=== PATIENT | female | born 1990 | race Caucasian/White ===

== ENCOUNTER 2020-02-03 11:42 | Emergency (ER) | payer BC, SELFPAY ==
[2020-02-03 11:53] VITALS: BP 111/70; PULSE 87; RESP 18; TEMP 37.2; O2SAT 99
--- NOTE | 2020-02-03 12:50 | ED.GENADULT ---
HPI - General Adult General Chief complaint: Upper Respiratory Infection Stated complaint: sore throat/body aches/headache Time Seen by Provider: 02/03/20 12:42 Source: patient and RN notes reviewed Mode of arrival: ambulatory Limitations: no limitations History of Present Illness HPI narrative: 30-year-old female presents with complaints of sore throat, body aches, and intermittent headaches (not the worst of her life) for the past 7 days. Tylenol and Flonase, last yesterday with little relief. No high fevers, ranged from 99.1-99.8F tympanic. No drooling, neck or throat swelling. Pain is bilateral. Hurts to swallow. Exacerbation factors consist of eating and drinking. No rhinorrhea or nasal congestion. No voice change. No nausea, vomiting, or abdominal pain. Tolerating liquids well. Denies chills, dyspnea, difficulty swallowing, jaw pain, dental pain, facial pain, foreign body sensation, and rash. Remains active. Liliane denies being , LMP 01/25/2020. Denies weakness, fatigue, myalgia, or facial swelling. Denies chest pain or dyspnea. Denies cough, rhinorrhea, congestion. Denies recent traveling. 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 She says she has made contact with her employee that suggested that she gets tested for the FLU/Strep. She says she has been home for the past 7 days without much improvement and now wants further evaluation of symptoms before returning to work. Remains active. Some parts of this dictation were generated by voice recognition software and may contain typographical and/or grammatical inaccuracies. Related Data Home Medications Medication Instructions Recorded Confirmed No Home Medications 02/03/20 02/03/20 Allergies Allergy/AdvReac Type Severity Reaction Status Date / Time No Known Drug Allergies Allergy Unknown Other Verified 02/03/20 12:25 Review of Systems Review of Systems: Narrative: CONSTITUTIONAL: Denies fever, chills, sweats. EYES: Denies visual changes, redness, discharge. ENT: Denies rhinorrhea, otalgia, congestion. Complains of sore throat. CARDIOVASCULAR: Denies chest pain, palpitations, edema. RESPIRATORY: Denies dyspnea, wheezing, cough. GASTROINTESTINAL: Denies abdominal pain, nausea, vomiting, diarrhea. GENITOURINARY: Denies dysuria, hematuria, abnormal discharge. SKIN: Denies rash or itching. MUSCULOSKELETAL: Denies acute back pain, joint pain. Complains of myalgia. NEUROLOGIC: Denies numbness or focal weakness. Complains of intermittent CAPONE. PSYCHIATRIC: Denies anxiety or depression. All systems reviewed & are unremarkable except as noted in HPI and below. [facility] Past Medical History Medical History (Updated 02/04/20 @ 00:00 by Haven Kolb) Allergies Anxiety Deviated septum Genital warts Interstitial cystitis Surgical History Surgical History (Updated 02/03/20 @ 12:51 by NICOLETTE Bauer) History of nasal surgery Family History Family History (Updated 02/03/20 @ 12:52 by NICOLETTE Bauer) Father Alive and well Mother Asthma Sibling Asthma Social History Social History (Updated 02/03/20 @ 12:53 by NICOLETTE Bauer) Smoking packs per day: 0.5 Smoking cigarettes per day: 10.0 Years smoked: 17 Smoking pack-years: 8.50 Smoking status: Current every day smoker Tobacco type: cigarettes Second hand tobacco smoke exposure: No Alcohol intake: current Substance use: current Substance use type: marijuana Additional occupation/education comments: works on a surgical floor Gender identity (if verbalized by the patient): Female Comments At time of signature, agree with nurse past medical, surgical, social, and family history. There is no relevant family history pertinent to the presenting complaint. Exa
== END 2020-02-03 13:08 | disposition home or self-care (01) ==
PROVIDERS: Emergency Provider Nurse Practitioner Family
DX: Z20.828 Contact with and (suspected) exposure to other viral communicable diseases (principal); J02.9 Acute pharyngitis, unspecified; F17.210 Nicotine dependence, cigarettes, uncomplicated
CPT/HCPCS: 87081; 87804; 87880; 99213; G0463

== ENCOUNTER 2021-10-06 09:20 | Outpatient (CLI) | payer BC, SELFPAY ==
[2021-10-06 11:00] LABS: Influenza Control Valid (Valid)
[2021-10-07 19:52] LABS: SARS-CoV-2 RNA PCR Positive
== END 2021-10-06 09:21 | disposition home or self-care (01) ==
LOC: CHSLAB 09:23
PROVIDERS: PCP Family Medicine; Visit Provider Family Medicine
DX: J02.9 Acute pharyngitis, unspecified (principal); Z20.822 Contact with and (suspected) exposure to COVID-19
CPT/HCPCS: 87804; 87880; C9803; U0003; U0005

== ENCOUNTER 2022-04-03 10:44 | Outpatient (CLI) | payer BC, SELFPAY ==
--- NOTE | ~2022-04-03 | XR_ITS ---
EXAMINATION: XR thoracolumbar DATE: 04/03/2022 11:08 INDICATION: Dorsalgia TECHNIQUE: AP and lateral views of the lower mid thoracic to the mid lumbar spine were obtained. COMPARISON: None. FINDINGS: Alignment is normal. Vertebral body and disc heights are normal. Paravertebral soft tissues are unrem arkable. Visual is portions of the posterior lungs are clear. No pleural effusion. Heart size is norm al. IMPRESSION: 1. Negative thoracolumbar spine radiographs. Reviewed, dictated and finalized at location B.
== END 2022-04-03 10:45 | disposition home or self-care (01) ==
LOC: CHSIMG 10:47
PROVIDERS: PCP Family Medicine; Visit Provider Family Medicine
DX: M54.9 Dorsalgia, unspecified (principal)
CPT/HCPCS: 72080

== ENCOUNTER 2022-10-07 11:04 | Outpatient (CLI) | payer BC, SELFPAY ==
--- NOTE | ~2022-10-07 | XR_ITS ---
Left foot Technique: AP, oblique, and lateral views were obtained. Clinical History: Pain Findings: No acute fracture or dislocation is seen. Possible pes cavus deformity. Joint spaces are pr eserved without erosive or degenerative change. Soft tissues are unremarkable. Impression: No acute fracture or dislocation. Possible pes cavus. Reviewed, dictated and finalized at location . EAR EQUIPMENT OPERATOR Impression: No acute fracture or dislocation. Possible pes cavus.
== END 2022-10-07 11:05 | disposition home or self-care (01) ==
LOC: CHSIMG 11:07
PROVIDERS: PCP Family Medicine; Visit Provider Family Medicine
DX: M79.672 Pain in left foot (principal)
CPT/HCPCS: 73630

== ENCOUNTER 2023-04-06 12:17 | Outpatient (CLI) | payer BC, SELFPAY ==
[2023-04-06 12:58] LABS: Strep Group A RT-PCR NOT DETECTED (Negative)
[2023-04-06 13:04] LABS: Influenza A QL RT-PCR Negative (Negative); Influenza B QL RT-PCR Negative (Negative); SARS-CoV-2 RNA PCR Negative (Negative)
[2023-04-06 13:06] LABS: RSV RNA, RT-PCR Negative (Negative)
== END 2023-04-06 12:18 | disposition home or self-care (01) ==
LOC: CHSLAB 12:18
PROVIDERS: PCP Family Medicine; Visit Provider Nurse Practitioner Family
DX: J02.9 Acute pharyngitis, unspecified (principal); Z20.822 Contact with and (suspected) exposure to COVID-19
CPT/HCPCS: 87637; 87651

== ENCOUNTER 2023-06-01 09:19 | Outpatient (CLI) | payer BC, SELFPAY ==
[2023-06-01 09:30] LABS: Basophils Absolute Auto 0.03 K/mm3 (0.00-0.10); Basophils Percent Auto 0.5 % (0.0-1.0); Eosinophils Absolute Auto 0.19 K/mm3 (0.02-0.50); Eosinophils Percent Auto 3.2 % (1.0-6.0); Hematocrit 38.4 % (35.0-49.0); Hemoglobin 12.7 g/dL (12.0-15.0); Immature Granulocyte Absolute 0.02 K/mm3 (0.00-0.00); Immature Granulocyte Percent A 0.3 % (0.0-0.0); Lymphocytes Absolute Auto 1.99 K/mm3 (1.10-4.50); Lymphocytes Percent Auto 33.4 % (18.0-42.0); Mean Corpuscular HGB Conc 33.1 g/dL (32.0-36.0); Mean Corpuscular Hemoglobin 30.3 pg (27.0-31.0); Mean Corpuscular Volume 91.6 fL (78.0-102.0); Monocytes Absolute Auto 0.42 K/mm3 (0.10-0.90); Monocytes Percent Auto 7.1 % (2.0-11.0); Neutrophils Absolute Auto 3.3 K/mm3 (1.7-7.2); Neutrophils Percent Auto 55.5 % (50.0-70.0); Platelet Count Result 207 K/mm3 (150-420); Red Blood Count 4.19 M/mm3 (4.20-5.40); Red Cell Distribution Width 11.9 % (11.6-14.4)
[2023-06-01 10:04] LABS: Alanine Aminotransferase 19 U/L (14-59); Albumin Level 3.7 g/dL (3.4-5.0); Alkaline Phosphatase 52 U/L (46-116); Anion Gap 7 mmol/L (8-16); Aspartate Amino Transferase < 10 U/L (15-37); Bilirubin,Total 0.7 mg/dL (0.00-1.00); Blood Urea Nitrogen 10 mg/dL (7-18); Carbon Dioxide 29 mmol/L (21-32); Chloride 106 mmol/L (98-108); Estimated Glomerular Filt Rate > 60; Glucose 93 mg/dL (70-99); Magnesium 1.9 mg/dL (1.8-2.4); Osmolality Calculated 293 mOsm/kg (285-295); Potassium 4.3 mmol/L (3.5-5.1); Sodium 142 mmol/L (136-145); Total Protein 6.8 g/dL (6.4-8.2)
== END 2023-06-01 09:20 | disposition home or self-care (01) ==
LOC: CHSLAB 09:21
PROVIDERS: PCP Family Medicine; Visit Provider Family Medicine
DX: R00.2 Palpitations (principal)
CPT/HCPCS: 36415; 80053; 83735; 85025

== ENCOUNTER 2023-06-08 08:47 | Outpatient (CLI) | payer BC, SELFPAY ==
--- NOTE | 2023-06-14 07:47 | WPDHOLTEREM ---
Holter/Event Monitor Holter/Event Monitor Date of procedure: 06/08/23 Holter/Event Procedure: 48 Hr Holter Monitor Indications: Palpitations Conclusion: 1. 48 hour holter monitor on 06/08/23. 2. Predominant rhythm is sinus rhythm. HR range 41-171 bpm; average HR 83 bpm. HR at 41 bpm was at 02:23. HR at 171 bpm was at 07:56 with baseline artifact. 3. There are 54 premature supraventricular complexes and 11 supraventricular couplets. There is 1 episode of atrial tachycardia at 128 bpm lasting 57 beats at 18:38. 4. There are 3,102 premature ventricular complexes. No ventricular tachycardia. 5. No sinoatrial or atrioventricular blocks. No significant pauses greater than 2 seconds. 6. Patient reports 1 episode of symptom of anxiousness which demonstrate sinus rhythm at 94 bpm.
== END 2023-06-08 08:48 | disposition home or self-care (01) ==
LOC: CHSCARD 08:49
PROVIDERS: PCP Family Medicine; Visit Provider Family Medicine
DX: R00.2 Palpitations (principal)
CPT/HCPCS: 93225; 93226

== ENCOUNTER 2023-09-02 13:55 | Outpatient (CLI) | payer BC, SELFPAY ==
[2023-09-02 14:41] LABS: SARS-CoV-2 RNA PCR Negative (Negative)
[2023-09-02 14:56] LABS: Influenza A QL RT-PCR Negative (Negative); Influenza B QL RT-PCR Negative (Negative)
== END 2023-09-02 13:56 | disposition home or self-care (01) ==
LOC: CHSLAB 13:56
PROVIDERS: PCP Family Medicine; Visit Provider Family Medicine
DX: R05.9 Cough, unspecified (principal)
CPT/HCPCS: 87636

== ENCOUNTER 2023-12-02 12:11 | Outpatient (CLI) | payer BC, SELFPAY ==
[2023-12-02 13:36] LABS: Monoscreen Negative (Negative); Positive Monotest Control Positive (Positive)
[2023-12-02 13:37] LABS: Negative Monotest Control Negative (Negative)
== END 2023-12-02 12:12 | disposition home or self-care (01) ==
LOC: CHSLAB 12:13
PROVIDERS: PCP Nurse Practitioner Family; Visit Provider Nurse Practitioner Family
DX: J02.9 Acute pharyngitis, unspecified (principal)
CPT/HCPCS: 36415; 86308

== ENCOUNTER 2024-12-08 17:08 | Outpatient (CLI) | payer BC, SELFPAY ==
--- OUTSIDE RECORDS SUMMARY | 2024-12-08 17:10 | XMS_ITS | Clinical Summary ---
Author Organization [facility] Address [address] [place] [address] Care Team Providers Care Inventory Checker Name Role Phone Melissa Posadas MD Primary Care Provider + Source Comments [facility] Teamleader,non-owned Affiliates and Associated Physician Practices is amultiple site organization consisting of ambulatory clinics and hospital sitesin [place], [place], [place] and [place]. This disclosure is being madepursuant to the Care Everywhere program and may not contain all information available regarding this patient. Last updated 18.[facility] Teamleader Allergies No known active allergies Medications * Be aware that medications may not be up to date on this document. Alwaysverify current medications with the patient. Medication Sig Dispensed Refills Start Date End Date Status etonogestrel-ethinyl estradiol (NUVARING) 0.12-0.015 MG/24HR vaginal ring Insert 1 Device into the vagina as directed Remove ring after 3 weeks, followed by 1 week-rest, then insert new ring Active albuterol HFA (PROAIR HFA) 108 (90 BASE) MCG/ACT inhalerIndications:A cute bronchitis, unspecified organism Inhale 2 puffs by mouth every 4 hours as needed for Shortness of Breath, Wheezing or Cough 1 Inhaler 08/28/2017 Active methylPREDNISolone (MEDROL DOSEPAK) 4 MG tabletIndications:Ac jany bronchitis, unspecified organism Take by mouth as directed 1 Each 08/28/2017 Active Social History Tobacco Use Types Packs/Day Years Used Date Smoking Tobacco: Every Day Sex and Gender Information Value Date Recorded Sex Assigned at Not on file Gender Identity Not on file Sexual Orientation Not on file Last Filed Vital Signs Vital Sign Reading Time Taken Comments Blood Pressure 110/70 08/28/2017 10:27 AM SMASHER Pulse 101 08/28/2017 10:27 AM SMASHER Temperature 37.1 C (98.8 F) 08/28/2017 10:27 AM SMASHER Respiratory Rate - - Oxygen Saturation - - Inhaled Oxygen Concentration - - Weight 61.2 kg (135 lb) 08/28/2017 10:27 AM SMASHER Height 160 cm (5' 3 ) 08/28/2017 10:27 AM SMASHER Body Mass Index 23.91 08/28/2017 10:27 AM SMASHER Plan of Treatment Health Maintenance Due Date Last Done Comments PAP SMEAR 1988 HIV SCREENING 01/19/2003 HEPATITIS C SCREENING 01/15/2006 DTAP/TDAP/TD VACCINES (1 - Tdap) 01/19/2007 HEPATITIS B VACCINE (1 of 3 - 19+ 3-dose series) 01/19/2007 COVID-19 VACCINE (2023-2 5 season) 2024 INFLUENZA VACCINE (#1) 2024 DEPRESSION SCREENING 09/20/2024 ZOSTER VACCINE (1 of 2) 01/19/2038 HIB VACCINE Aged Out No longer eligi ble based on patient's age to complete this topic HPV VACCINE Aged Out No longer eligi ble based on patient's age to complete this topic MENINGOCOCCAL (Group B) VACC INE SHARED DECISION-MAKING Aged Out No longer eligibl e based on patient's age to complete this topic MENINGOCOCCAL GROUPS A/C/Y/W VACCINE Aged Out No longer eligible b ased on patient's age to complete this topic PNEUMOCOCCAL VACCINE Aged Out No long er eligible based on patient's age to complete this topic Care Teams Inventory Checker Relationship Specialty Start Date End Date Melissa Posadas MD [phone] (work) PCP - General Family Medicine 06/20/16
--- OUTSIDE RECORDS SUMMARY | 2024-12-08 17:11 | XMS_ITS | Clinical Summary ---
Author Organization [facility] Address [address] [place] [address] Care Team Providers Care Pre Sales Technical Consultant Name Role Phone Unavailable Primary Care Provider Unavailabl e Allergies No known active allergies Medications ibuprofen (ibuprofen) 200 mg tab/cap Take 200 mg by mouth every 6 (six) hours as needed for pain Active melatonin 10 mg capsule Take by mouth Active escitalopram (LEXAPRO) 10 mg tabletIndicatio ns:Mild episode of recurrent major depressive disorder Take 1 tablet (10 mg total) by mouth daily 90 tablet 08/28/2019 Active zolpidem (AMBIEN) 5 mg tabletIndicatio ns:Sleep-Onset Insomnia Take 1 tablet (5 mg total) by mouth nightly as needed for sleep 30 tablet 5 08/28/2019 Active Active Problems Problem Noted Date Diagnosed Date Mild episode of recurrent major depressive disor ernie 08/29/2019 Assessment & Plan (08/29/2019 5:37 PM MACERATOR OPERATOR): Encouraged counseling through EAP at work. New start on medication. Close f/u. Go to nearest ER if you believe you will be a harm to yourself or others. Primary insomnia 08/29/2019 Assessment & Plan (08/29/2019 5:38 PM MACERATOR OPERATOR): Trial of ambien, will follow. Generalized anxiety disorder 08/29/2019 Assessment & Plan (08/29/2019 5:38 PM MACERATOR OPERATOR): Encouraged counseling through EAP at work. New start on medication. Close f/u. Go to nearest ER if you believe you will be a harm to yourself or others. IC (interstitial cystitis) 08/28/2019 Exercise-induced asthma 02/03/2014 Overview (12/25/2016): Exercise-induced asthma Atopic rhinitis 02/03/2014 Overview (12/25/2016): ALLERGIC RHINITIS NOS Attention deficit disorder 02/03/2014 Overview (08/28/2019): Not currently on any medication. Use to take Ritalin as a child. She states that she does not like the way it makes her feel, zombie-like. 08/28/2019 Acquired deviated nasal septum 01/01/2012 Immunizations Immunization Administration Dates Next Due Influenza, Quadrivalent, Split, Intramuscular Influenza, Split 08/01/2010 Influenza, Unspecified 07/12/2019,07/09/2018 Tdap 08/01/2010 Surgical History Surgery Date Site/Laterality Comments NOSE SURGERY 2011 and 2008 Family History Medical History Relation Name Comments Hyperlipidemia Father Diabetes Maternal Grandfather Diabetes type II Maternal Grandfather Rae betkelvin mellitus type 2; Hypertension Maternal Grandfather Hypertension Maternal Grandmother Hypertension Paternal Grandfather Diabetes Paternal Grandmother Hypertension Paternal Grandmother Relation Name Status Comments Father Maternal Grandfather Maternal Grandmother Paternal Grandfather Paternal Grandmother Social History Tobacco Use Types Packs/Day Years Used Date Smoking Tobacco: Every Day Cigarettes 0.5 16 Smokeless Tobacco: Never Alcohol Use Standard Drinks/Week Comments Yes 0 (1 standard drink = 0.6 oz pur e alcohol) PHQ-2 Answer Date Recorded PHQ-2 Score 4 08/28/2019 Comments Unknown Sex and Gender Information Value Date Recorded Sex Assigned at Not on file Legal Sex Female 10:54 AM MACERATOR OPERATOR Gender Identity Not on file Sexual Orientation Not on file Obstetrics History Last Filed Vital Signs Vital Sign Reading Time Taken Comments Blood Pressure 107/75 08/28/2019 3:51 PM MACERATOR OPERATOR Pulse 74 08/28/2019 3:51 PM MACERATOR OPERATOR Temperature 36.6 C (97.8 F) 08/28/2019 3:51 PM MACERATOR OPERATOR Respiratory Rate 12 08/28/2019 3:51 PM MACERATOR OPERATOR Oxygen Saturation 96% 08/28/2019 3:51 PM MACERATOR OPERATOR Inhaled Oxygen Concentration - - Weight 56.9 kg (125 lb 8 oz) 08/28/2019 3:51 PM MACERATOR OPERATOR Height 160 cm (5' 3 ) 08/28/2019 3:51 PM MACERATOR OPERATOR Body Mass Index 22.23 08/28/2019 3:51 PM MACERATOR OPERATOR Plan of Treatment Health Maintenance Due Date Last Done Comments Cervical Cancer Screening 1988 Hepatitis C Screening 1988 Varicella Vaccines (1 of 2 - 13+ 2-dose series) 01/19/2001 Hepatitis B Screening 01/19/2006 Pneumococcal vaccine <65 (1 of 2 - PCV) 01/19/2007 Regular Well Visit/Exam 18-64 08/10/2019 08/10/2018 DTaP/Tdap/Td Vaccine (2 - Td or Tdap) 08/01/2020 08/01/2010 Depression Screening 08/28/2020 08/28/2019, 08/10/20 18 Covid-19 Vaccine (2023- season) 2024 04/23/2021, 03/27/2021 Influenza Vaccine (#1) 2024 9, 07/09/2018, 07/06/2016, Additional history exists HPV Vaccines Aged Out No longer eligi ble based on patient's age to complete this topic Insurance [facility] [place] [employer] [place]
--- OUTSIDE RECORDS SUMMARY | 2024-12-08 17:11 | XMS_ITS | Clinical Summary ---
Author Organization [facility] Address [address] [place] [address] Care Team Providers Care Food Preparer Name Role Phone Elvis Castellon DO Primary Care Provider [phone] Allergies No known active allergies Medications azithromycin 250 MG tablet Take 2 tablets by mouth on day one then 1 daily for four days. 6 tablet 03/18/2022 Active albuterol sulfate HFA 108 (90 Base) MCG/ACT inhaler Inhale 2 puffs into the lungs every 6 (six) hours as needed for Wheezing. 8 g 03/18/2022 Active Social History Tobacco Use Types Packs/Day Years Used Date Smoking Tobacco: Never Assessed Comments Unknown Sex and Gender Information Value Date Recorded Sex Assigned at Not on file Legal Sex Female 11:41 AM CDT Gender Identity Not on file Sexual Orientation Not on file Last Filed Vital Signs Vital Sign Reading Time Taken Comments Blood Pressure 103/70 03/18/2022 11:59 AM CDT Pulse 70 03/18/2022 11:59 AM CDT Temperature 36.8 C (98.2 F) 03/18/2022 11:59 AM CDT Respiratory Rate 18 03/18/2022 11:59 AM CDT Oxygen Saturation 96% 03/18/2022 11:59 AM CDT Inhaled Oxygen Concentration - - Weight 56.7 kg (125 lb) 03/18/2022 11:56 AM CDT Height 160 cm (5' 3 ) 03/18/2022 11:56 AM CDT Body Mass Index 22.14 03/18/2022 11:56 AM CDT Plan of Treatment Health Maintenance Due Date Last Done Comments Annual Physical 01/19/1991 Hepatitis C 01/19/2006 Hepatitis B Vaccines (1 of 3 - 19+ 3-dose series) 01/19/2007 Cervical Cancer Screening Pap with HPV Testing (Age 30 to 64) Every 5 Years 01/19/2018 07/02/2017 Cervical Cancer Screening Pap Smear (Age 30 to 64) Every 3 Years 07/02/2020 07/02/2017 Cervical Cancer Screening with HPV 07/02/2020 DTaP, Tdap and Td Vaccines (2 - Td or Tdap) 08/01/2020 08/01/2010 COVID-19 Vaccine ( season) 2024 Influenza Adult (#1) 2024 07/12/2019, 07/09/2018, 07/06/2016, Additional history exists HPV Vaccines Aged Out No longer eligi ble based on patient's age to complete this topic Meningococcal B Vaccine Aged Out No l onger eligible based on patient's age to complete this topic Meningococcal Vaccine Aged Out No connie jaime eligible based on patient's age to complete this topic Pneumococcal Vaccine: Pediatrics (0 to 5 Years) and At-Risk Patients (6 to 64 Years) Aged Out No longer eligible based on patient's age to complete this topic RSV Immunizations Under 20 Months Aged Out No longer eligible based on patient's age to complete this topic Insurance [employer] Care Teams Food Preparer Relationship Specialty Start Date End Date Elvis Castellon DO [facility] [place] [address] PCP - General FAMILY PRACTICE 03/18/22
--- OUTSIDE RECORDS SUMMARY | 2024-12-08 17:11 | XMS_ITS | Referral Summary ---
Author Organization [facility] al Address [address] [place] [address] Care Team Providers Care Database Administration Manager Name Role Phone Unavailable Primary Care Provider [...] 08/29/2019 Assessment & Plan (08/29/2019 5:37 PM RN CVICU): Encouraged counseling through EAP at work. New start on medication. Close f/u. Go to nearest ER if you believe you will be a harm to yourself or others. Primary insomnia 08/29/2019 Assessment & Plan (08/29/2019 5:38 PM RN CVICU): Trial of ambien, will follow. Generalized anxiety disorder 08/29/2019 Assessment & Plan (08/29/2019 5:38 PM RN CVICU): Encouraged counseling through EAP at work. New [...] Split 08/01/2010 Influenza, Unspecified 07/12/2019,07/09/2018 Tdap 08/01/2010 Social History Tobacco Use Types Packs/Day Years Used Date Smoking Tobacco: Every Day Cigarettes 0.5 16 Smokeless Tobacco: Never Alcohol Use Standard Drinks/Week Comments Yes 0 (1 standard drink = 0.6 oz pur e alcohol) PHQ-2 Answer Date Recorded PHQ-2 Score 4 08/28/2019 Comments Unknown Sex and Gender Information Value Date Recorded Sex Assigned at Not on file Legal Sex Female 10:54 AM RN CVICU Gender Identity Not on file Sexual Orientation Not on file Last Filed Vital Signs Vital Sign Reading Time Taken Comments Blood Pressure 107/75 08/28/2019 3:51 PM RN CVICU Pulse 74 08/28/2019 3:51 PM RN CVICU Temperature 36.6 C (97.8 F) 08/28/2019 3:51 PM RN CVICU Respiratory Rate 12 08/28/2019 3:51 PM RN CVICU Oxygen Saturation 96% 08/28/2019 3:51 PM RN CVICU Inhaled Oxygen Concentration - - Weight 56.9 kg (125 lb 8 oz) 08/28/2019 3:51 PM RN CVICU Height 160 cm (5' 3 ) 08/28/2019 3:51 PM RN CVICU Body Mass Index 22.23 08/28/2019 3:51 PM RN CVICU Plan of Treatment Not on file Insurance [facility] [facility] Address: [address] [place] [address] [employer] Address: [facility] [id number] [place] [address] [place] [facility]
[2024-12-08 17:43] LABS: Strep Group A RT-PCR NOT DETECTED (Negative)
== END 2024-12-08 17:09 | disposition home or self-care (01) ==
LOC: CHSLAB 17:09
PROVIDERS: PCP Family Medicine; Visit Provider Nurse Practitioner Family
DX: J06.9 Acute upper respiratory infection, unspecified (principal)
CPT/HCPCS: 87651

== ENCOUNTER 2024-12-15 15:10 | Outpatient (NON) | payer BC, SELFPAY ==
--- OUTSIDE RECORDS SUMMARY | 2024-12-15 15:13 | XMS_ITS | Clinical Summary ---
Author Organization [facility] Address [address] [place] [address] Care Team Providers Care Outboard Technician Name Role Phone Elvis Castellon DO Primary Care Provider [phone] Allergies No known active allergies Medications azithromycin [...] patient's age to complete this topic Insurance [facility] Care Teams Outboard Technician Relationship Specialty Start Date End Date Elvis Castellon [place] [address] PCP - General FAMILY PRACTICE 03/18/22
--- OUTSIDE RECORDS SUMMARY | 2024-12-15 15:13 | XMS_ITS | Referral Summary ---
Author Organization [facility] Address [address] [place] [address] Care Team Providers Care Media Buyer Name Role Phone Unavailable Primary Care Provider [...] 08/29/2019 Assessment & Plan (08/29/2019 5:37 PM NEWSSTAND VENDOR): Encouraged counseling through EAP at work. New start on medication. Close f/u. Go to nearest ER if you believe you will be a harm to yourself or others. Primary insomnia 08/29/2019 Assessment & Plan (08/29/2019 5:38 PM NEWSSTAND VENDOR): Trial of ambien, will follow. Generalized anxiety disorder 08/29/2019 Assessment & Plan (08/29/2019 5:38 PM NEWSSTAND VENDOR): Encouraged counseling through EAP at work. New [...] on file Legal Sex Female 10:54 AM NEWSSTAND VENDOR Gender Identity Not on file Sexual Orientation Not on file Last Filed Vital Signs Vital Sign Reading Time Taken Comments Blood Pressure 107/75 08/28/2019 3:51 PM NEWSSTAND VENDOR Pulse 74 08/28/2019 3:51 PM NEWSSTAND VENDOR Temperature 36.6 C (97.8 F) 08/28/2019 3:51 PM NEWSSTAND VENDOR Respiratory Rate 12 08/28/2019 3:51 PM NEWSSTAND VENDOR Oxygen Saturation 96% 08/28/2019 3:51 PM NEWSSTAND VENDOR Inhaled Oxygen Concentration - - Weight 56.9 kg (125 lb 8 oz) 08/28/2019 3:51 PM NEWSSTAND VENDOR Height 160 cm (5' 3 ) 08/28/2019 3:51 PM NEWSSTAND VENDOR Body Mass Index 22.23 08/28/2019 3:51 PM NEWSSTAND VENDOR Plan of Treatment Not on file Insurance [employer]THEM ACC[employer] [place] [facility]
--- OUTSIDE RECORDS SUMMARY | 2024-12-15 15:13 | XMS_ITS | Clinical Summary ---
Author Organization [facility] Address [address] [place] [address] Care Team Providers Care Cell Repairer Name Role Phone Melissa Posadas MD Primary Care Provider + Source Comments [facility] Marfeel,non-owned Affiliates and Associated Physician Practices is amultiple site organization consisting of ambulatory clinics and hospital sitesin [place], [place], [place] and [place]. This disclosure is being madepursuant to the Care Everywhere program and may not contain all information available regarding this patient. Last updated 18.[facility] Allergies No known active allergies Medications * [...] Comments Blood Pressure 110/70 08/28/2017 10:27 AM EDUCATION ADVISER Pulse 101 08/28/2017 10:27 AM EDUCATION ADVISER Temperature 37.1 C (98.8 F) 08/28/2017 10:27 AM EDUCATION ADVISER Respiratory Rate - - Oxygen Saturation - - Inhaled Oxygen Concentration - - Weight 61.2 kg (135 lb) 08/28/2017 10:27 AM EDUCATION ADVISER Height 160 cm (5' 3 ) 08/28/2017 10:27 AM EDUCATION ADVISER Body Mass Index 23.91 08/28/2017 10:27 AM EDUCATION ADVISER Plan of Treatment Health Maintenance Due Date [...] age to complete this topic Care Teams Cell Repairer Relationship Specialty Start Date End Date Melissa Posadas MD [phone] (work) PCP - General Family Medicine 06/20/16
--- OUTSIDE RECORDS SUMMARY | 2024-12-15 15:13 | XMS_ITS | Clinical Summary ---
Author Organization [facility] Address [address] [place] [address] Care Team Providers Care Adjunct Instructor Of Women'S Studies Name Role Phone Unavailable Primary Care Provider [...] 08/29/2019 Assessment & Plan (08/29/2019 5:37 PM AUTO POLISHER): Encouraged counseling through EAP at work. New start on medication. Close f/u. Go to nearest ER if you believe you will be a harm to yourself or others. Primary insomnia 08/29/2019 Assessment & Plan (08/29/2019 5:38 PM AUTO POLISHER): Trial of ambien, will follow. Generalized anxiety disorder 08/29/2019 Assessment & Plan (08/29/2019 5:38 PM AUTO POLISHER): Encouraged counseling through EAP at work. New [...] on file Legal Sex Female 10:54 AM AUTO POLISHER Gender Identity Not on file Sexual Orientation Not on file Obstetrics History Last Filed Vital Signs Vital Sign Reading Time Taken Comments Blood Pressure 107/75 08/28/2019 3:51 PM AUTO POLISHER Pulse 74 08/28/2019 3:51 PM AUTO POLISHER Temperature 36.6 C (97.8 F) 08/28/2019 3:51 PM AUTO POLISHER Respiratory Rate 12 08/28/2019 3:51 PM AUTO POLISHER Oxygen Saturation 96% 08/28/2019 3:51 PM AUTO POLISHER Inhaled Oxygen Concentration - - Weight 56.9 kg (125 lb 8 oz) 08/28/2019 3:51 PM AUTO POLISHER Height 160 cm (5' 3 ) 08/28/2019 3:51 PM AUTO POLISHER Body Mass Index 22.23 08/28/2019 3:51 PM AUTO POLISHER Plan of Treatment Health Maintenance Due Date [...] patient's age to complete this topic Insurance [facility] [place] [employer] [place]
== END 2024-12-15 15:11 | disposition home or self-care (01) ==
PROVIDERS: Visit Provider Family Medicine
DX: N39.0 Urinary tract infection, site not specified (principal)
CPT/HCPCS: 87086

== ENCOUNTER 2024-12-22 10:34 | Outpatient (CLI) | payer BC, SELFPAY ==
--- NOTE | ~2024-12-22 | US_ITS ---
EXAMINATION: US pelvic limited DATE: 12/22/2024 11:03 INDICATION: Chronic interstitial cystitis TECHNIQUE: Multiple transabdominal and endovaginal sonographic images of the pelvis were obtained. COMPARISON: None. FINDINGS: P is normal with no evident wall thickening and loculated prevoid bladder volume of 469 mL. Bladder i s completely decompressed with no postvoid residual. The visualized portion of the uterus appears nor mal with visualized portion of the endometrial complex measuring 3 mm in thickness which is normal. N o free fluid in the visualized pelvis. IMPRESSION: 1. Normal bladder. Reviewed, dictated and finalized at location A. IMPRESSION: 1. Normal bladder.
--- OUTSIDE RECORDS SUMMARY | 2024-12-22 11:07 | XMS_ITS | Clinical Summary ---
Author Organization [facility] Address [address] [place] [address] Care Team Providers Care Bleacher Sulfite Pulp Name Role Phone Melissa Posadas MD Primary Care Provider + Source Comments [facility] [employer],non-owned Affiliates and Associated Physician Practices is amultiple site organization consisting of ambulatory clinics and hospital sitesin [place], [place], [place] and [place]. This disclosure is being madepursuant to the Care Everywhere program and may not contain all information available regarding this patient. Last updated 18.[facility] [employer] Allergies No known active allergies Medications * [...] Comments Blood Pressure 110/70 08/28/2017 10:27 AM HAND FABRIC CUTTER Pulse 101 08/28/2017 10:27 AM HAND FABRIC CUTTER Temperature 37.1 C (98.8 F) 08/28/2017 10:27 AM HAND FABRIC CUTTER Respiratory Rate - - Oxygen Saturation - - Inhaled Oxygen Concentration - - Weight 61.2 kg (135 lb) 08/28/2017 10:27 AM HAND FABRIC CUTTER Height 160 cm (5' 3 ) 08/28/2017 10:27 AM HAND FABRIC CUTTER Body Mass Index 23.91 08/28/2017 10:27 AM HAND FABRIC CUTTER Plan of Treatment Health Maintenance Due Date [...] age to complete this topic Care Teams Bleacher Sulfite Pulp Relationship Specialty Start Date End Date Melissa Posadas MD [phone] (work) PCP - General Family Medicine 06/20/16
--- OUTSIDE RECORDS SUMMARY | 2024-12-22 11:07 | XMS_ITS | Clinical Summary ---
Author Organization [facility] Address [address] [place] [address] Care Team Providers Care Motor Vehicle Licence Examiner Name Role Phone Unavailable Primary Care Provider [...] 08/29/2019 Assessment & Plan (08/29/2019 5:37 PM SANITATION WORKER CLEANING MACHINERY): Encouraged counseling through [employer] at work. New start on medication. Close f/u. Go to nearest ER if you believe you will be a harm to yourself or others. Primary insomnia 08/29/2019 Assessment & Plan (08/29/2019 5:38 PM SANITATION WORKER CLEANING MACHINERY): Trial of ambien, will follow. Generalized anxiety disorder 08/29/2019 Assessment & Plan (08/29/2019 5:38 PM SANITATION WORKER CLEANING MACHINERY): Encouraged counseling through [employer] at work. New [...] on file Legal Sex Female 10:54 AM SANITATION WORKER CLEANING MACHINERY Gender Identity Not on file Sexual Orientation Not on file Obstetrics History Last Filed Vital Signs Vital Sign Reading Time Taken Comments Blood Pressure 107/75 08/28/2019 3:51 PM SANITATION WORKER CLEANING MACHINERY Pulse 74 08/28/2019 3:51 PM SANITATION WORKER CLEANING MACHINERY Temperature 36.6 C (97.8 F) 08/28/2019 3:51 PM SANITATION WORKER CLEANING MACHINERY Respiratory Rate 12 08/28/2019 3:51 PM SANITATION WORKER CLEANING MACHINERY Oxygen Saturation 96% 08/28/2019 3:51 PM SANITATION WORKER CLEANING MACHINERY Inhaled Oxygen Concentration - - Weight 56.9 kg (125 lb 8 oz) 08/28/2019 3:51 PM SANITATION WORKER CLEANING MACHINERY Height 160 cm (5' 3 ) 08/28/2019 3:51 PM SANITATION WORKER CLEANING MACHINERY Body Mass Index 22.23 08/28/2019 3:51 PM SANITATION WORKER CLEANING MACHINERY Plan of Treatment Health Maintenance Due Date [...] patient's age to complete this topic Insurance [facility] [employer] [place] [email or web address] [place]
--- OUTSIDE RECORDS SUMMARY | 2024-12-22 11:07 | XMS_ITS | Clinical Summary ---
Author Organization [facility] Address [address] [place] [address] Care Team Providers Care Electrical Plumbing Supervisor Name Role Phone Elvis Castellon DO Primary Care Provider [phone] Allergies No known active allergies Medications azithromycin [...] 19+ 3-dose series) 01/19/2007 Cervical Cancer Screening Pa p with HPV Testing (Age 30 to 64) Every 5 Years 01/19/2018 07/02/2017 Cervical Cancer Screening Pa p Smear (Age 30 to 64) Every 3 Years 07/02/2020 07/02/2017 Cervical Cancer Screening with HPV 07/02/2020 DTaP, Tdap and Td Vaccines ( 2 - Td or Tdap) 08/01/2020 08/01/2010 COVID-19 Vaccine (2023-2 5 season) 2024 HPV Vaccines Aged Out No longer eligi ble based on patient's age to complete this topic Meningococcal B Vaccine Aged Out No l onger eligible based on patient's age to complete this topic Meningococcal Vaccine Aged Out No connie jaime eligible based on patient's age to complete this topic Pneumococcal Vaccine: Pediat rics (0 to 5 Years) and At-Risk Patients (6 to 64 Years) Aged Out No longer eligi ble based on patient's age to complete this topic RSV Immunizations Under 20 Months Aged Out No longer eligible based on patient's age to complete this topic Insurance [facility] Care Teams Electrical Plumbing Supervisor Relationship Specialty Start Date End Date Elvis Castellon DO [address] [place] [address] PCP - General FAMILY PRACTICE 03/18/22
--- OUTSIDE RECORDS SUMMARY | 2024-12-22 11:07 | XMS_ITS | Referral Summary ---
Author Organization [facility] Address [address] [place] [address] Care Team Providers Care Veterinary Technician Instructor Name Role Phone Unavailable Primary Care Provider [...] 08/29/2019 Assessment & Plan (08/29/2019 5:37 PM DRINK WAITER): Encouraged counseling through [employer] at work. New start on medication. Close f/u. Go to nearest ER if you believe you will be a harm to yourself or others. Primary insomnia 08/29/2019 Assessment & Plan (08/29/2019 5:38 PM DRINK WAITER): Trial of ambien, will follow. Generalized anxiety disorder 08/29/2019 Assessment & Plan (08/29/2019 5:38 PM DRINK WAITER): Encouraged counseling through [employer] at work. New [...] on file Legal Sex Female 10:54 AM DRINK WAITER Gender Identity Not on file Sexual Orientation Not on file Last Filed Vital Signs Vital Sign Reading Time Taken Comments Blood Pressure 107/75 08/28/2019 3:51 PM DRINK WAITER Pulse 74 08/28/2019 3:51 PM DRINK WAITER Temperature 36.6 C (97.8 F) 08/28/2019 3:51 PM DRINK WAITER Respiratory Rate 12 08/28/2019 3:51 PM DRINK WAITER Oxygen Saturation 96% 08/28/2019 3:51 PM DRINK WAITER Inhaled Oxygen Concentration - - Weight 56.9 kg (125 lb 8 oz) 08/28/2019 3:51 PM DRINK WAITER Height 160 cm (5' 3 ) 08/28/2019 3:51 PM DRINK WAITER Body Mass Index 22.23 08/28/2019 3:51 PM DRINK WAITER Plan of Treatment Not on file Insurance ANTHEM ACCESS AN[employer] ACCESS BLUE [employer] [place] [facility]
== END 2024-12-22 10:35 | disposition home or self-care (01) ==
LOC: CHSIMG 10:35
PROVIDERS: PCP Family Medicine; Visit Provider Family Medicine
DX: N30.10 Interstitial cystitis (chronic) without hematuria (principal)
CPT/HCPCS: 76857

== ENCOUNTER 2025-01-02 10:18 | Outpatient (CLI) | payer BC, SELFPAY ==
[2025-01-02 10:36] LABS: Basophils Absolute Auto 0.05 K/mm3 (0.00-0.10); Eosinophils Absolute Auto 0.13 K/mm3 (0.02-0.50); Eosinophils Percent Auto 2.5 % (1.0-6.0); Hematocrit 39.3 % (35.0-49.0); Hemoglobin 12.7 g/dL (12.0-15.0); Immature Granulocyte Absolute 0.02 K/mm3 (0.00-0.00); Immature Granulocyte Percent A 0.4 % (0.0-0.0); Lymphocytes Absolute Auto 1.92 K/mm3 (1.10-4.50); Lymphocytes Percent Auto 37.1 % (18.0-42.0); Mean Corpuscular HGB Conc 32.3 g/dL (32-36); Mean Corpuscular Hemoglobin 29.6 pg (27.0-31.0); Mean Corpuscular Volume 91.6 fL (78.0-102.0); Mean Platelet Volume 10.7 fl (9.2-11.8); Monocytes Absolute Auto 0.29 K/mm3 (0.10-0.90); Monocytes Percent Auto 5.6 % (2.0-11.0); Neutrophils Absolute Auto 2.77 K/mm3 (1.70-7.20); Neutrophils Percent Auto 53.4 % (50.0-70.0); Platelet Count Result 226 K/mm3 (150-420); Red Blood Count 4.29 M/mm3 (4.20-5.40); Red Cell Distribution Width 11.9 % (11.6-14.4); White Blood Count 5.2 K/mm3 (4.8-10.8)
[2025-01-02 10:48] LABS: Hemoglobin A1C 5.5 % (<5.7)
--- OUTSIDE RECORDS SUMMARY | 2025-01-02 11:18 | XMS_ITS | Clinical Summary ---
Author Organization [facility] Address [address] [place] [address] Care Team Providers Care Auto Brake Mechanic Name Role Phone Melissa Posadas MD Primary Care Provider + Source Comments [facility] [employer],non-owned Affiliates and Associated Physician Practices is amultiple site organization consisting of ambulatory clinics and hospital sitesin [place], [place], [place] and [place]. This disclosure is being madepursuant to the Care Everywhere program and may not contain all information available regarding this patient. Last updated 18.[facility] [employer] Allergies No known active allergies Medications * Be aware that medications may not be up to date on this document. Alwaysverify current medications with the patient. etonogestrel-eth inyl estradiol (NUVARING) 0.12-0.015 MG/24HR vaginal ring Insert 1 Device into the vagina as directed Remove ring after 3 weeks, followed by 1 week-rest, then insert new ring Active albuterol HFA (PROAIR HFA) 108 (90 BASE) MCG/ACT inhalerIndicatio ns:Acute bronchitis, unspecified organism Inhale 2 puffs by mouth every 4 hours as needed for Shortness of Breath, Wheezing or Cough 1 Inhaler 7 Active methylPREDNISolo ne (MEDROL DOSEPAK) 4 MG tabletIndication s:Acute bronchitis, unspecified organism Take by mouth as directed 1 Each 7 Active Social History Tobacco Use Types Packs/Day Years Used Date Smoking Tobacco: Every Day Comments Unknown Sex and Gender Information Value Date Recorded Sex Assigned at Not on file Legal Sex Female 9:57 AM CDT Gender Identity Not on file Sexual Orientation Not on file Last Filed Vital Signs Vital Sign Reading Time Taken Comments Blood Pressure 110/70 08/28/2017 10:27 AM PRINCIPAL HARDWARE ARCHITECT Pulse 101 08/28/2017 10:27 AM PRINCIPAL HARDWARE ARCHITECT Temperature 37.1 C (98.8 F) 08/28/2017 10:27 AM PRINCIPAL HARDWARE ARCHITECT Respiratory Rate - - Oxygen Saturation - - Inhaled Oxygen Concentration - - Weight 61.2 kg (135 lb) 08/28/2017 10:27 AM PRINCIPAL HARDWARE ARCHITECT Height 160 cm (5' 3 ) 08/28/2017 10:27 AM PRINCIPAL HARDWARE ARCHITECT Body Mass Index 23.91 08/28/2017 10:27 AM PRINCIPAL HARDWARE ARCHITECT Plan of Treatment Health Maintenance Due Date Last Done Comments HIV SCREENING 01/19/2003 HEPATITIS C SCREENING 01/15/2006 DTAP/TDAP/TD VACCINES (1 - Tdap) 01/19/2007 HEPATITIS B VACCINE (1 of 3 - 19+ 3-dose series) 01/19/2007 COVID-19 VACCINE (1 - 2023-2 5 season) 2024 DEPRESSION SCREENING 09/20/2024 INFLUENZA VACCINE (Season Ended) 2025 ZOSTER VACCINE (1 of 2) 01/19/2038 HIB [...] patient's age to complete this topic Insurance Care Teams Auto Brake Mechanic Relationship Specialty Start Date End Date Melissa Posadas MD PCP - General Family Medicine 06/20/16
--- OUTSIDE RECORDS SUMMARY | 2025-01-02 11:18 | XMS_ITS | Clinical Summary ---
Author Organization [facility] Address [address] [place] [address] Care Team Providers Care Technical Support Engineer Name Role Phone Elvis Castellon DO Primary Care Provider [phone] Allergies No known active allergies Medications azithromycin [...] 5 Years) and At-Risk Patients (6 to 49 Years) Aged Out No longer eligi ble based on patient's age to complete this topic RSV Immunizations Under 20 Months Aged Out No longer eligible based on patient's age to complete this topic Insurance [facility] Care Teams Technical Support Engineer Relationship Specialty Start Date End Date Elvis Castellon DO [address] [place] [address] PCP - General FAMILY PRACTICE 03/18/22
--- OUTSIDE RECORDS SUMMARY | 2025-01-02 11:18 | XMS_ITS | Clinical Summary ---
Author Organization [facility] Address [address] [place] [address] Care Team Providers Care Medical Records Tech Name Role Phone Unavailable Primary Care Provider [...] 08/29/2019 Assessment & Plan (08/29/2019 5:37 PM BUSINESS STRATEGY MANAGER): Encouraged counseling through [employer] at work. New start on medication. Close f/u. Go to nearest ER if you believe you will be a harm to yourself or others. Primary insomnia 08/29/2019 Assessment & Plan (08/29/2019 5:38 PM BUSINESS STRATEGY MANAGER): Trial of ambien, will follow. Generalized anxiety disorder 08/29/2019 Assessment & Plan (08/29/2019 5:38 PM BUSINESS STRATEGY MANAGER): Encouraged counseling through [employer] at work. New [...] on file Legal Sex Female 10:54 AM BUSINESS STRATEGY MANAGER Gender Identity Not on file Sexual Orientation Not on file Obstetrics History Last Filed Vital Signs Vital Sign Reading Time Taken Comments Blood Pressure 107/75 08/28/2019 3:51 PM BUSINESS STRATEGY MANAGER Pulse 74 08/28/2019 3:51 PM BUSINESS STRATEGY MANAGER Temperature 36.6 C (97.8 F) 08/28/2019 3:51 PM BUSINESS STRATEGY MANAGER Respiratory Rate 12 08/28/2019 3:51 PM BUSINESS STRATEGY MANAGER Oxygen Saturation 96% 08/28/2019 3:51 PM BUSINESS STRATEGY MANAGER Inhaled Oxygen Concentration - - Weight 56.9 kg (125 lb 8 oz) 08/28/2019 3:51 PM BUSINESS STRATEGY MANAGER Height 160 cm (5' 3 ) 08/28/2019 3:51 PM BUSINESS STRATEGY MANAGER Body Mass Index 22.23 08/28/2019 3:51 PM BUSINESS STRATEGY MANAGER Plan of Treatment Health Maintenance Due Date [...] patient's age to complete this topic Insurance [facility] [employer]
--- OUTSIDE RECORDS SUMMARY | 2025-01-02 11:18 | XMS_ITS | Referral Summary ---
Author Organization [facility] Address [address] [place] [address] Care Team Providers Care Rpg Programmer Name Role Phone Unavailable Primary Care Provider [...] 08/29/2019 Assessment & Plan (08/29/2019 5:37 PM TIN ROLLER HOT MILL): Encouraged counseling through [employer] at work. New start on medication. Close f/u. Go to nearest ER if you believe you will be a harm to yourself or others. Primary insomnia 08/29/2019 Assessment & Plan (08/29/2019 5:38 PM TIN ROLLER HOT MILL): Trial of ambien, will follow. Generalized anxiety disorder 08/29/2019 Assessment & Plan (08/29/2019 5:38 PM TIN ROLLER HOT MILL): Encouraged counseling through [employer] at work. New [...] on file Legal Sex Female 10:54 AM TIN ROLLER HOT MILL Gender Identity Not on file Sexual Orientation Not on file Last Filed Vital Signs Vital Sign Reading Time Taken Comments Blood Pressure 107/75 08/28/2019 3:51 PM TIN ROLLER HOT MILL Pulse 74 08/28/2019 3:51 PM TIN ROLLER HOT MILL Temperature 36.6 C (97.8 F) 08/28/2019 3:51 PM TIN ROLLER HOT MILL Respiratory Rate 12 08/28/2019 3:51 PM TIN ROLLER HOT MILL Oxygen Saturation 96% 08/28/2019 3:51 PM TIN ROLLER HOT MILL Inhaled Oxygen Concentration - - Weight 56.9 kg (125 lb 8 oz) 08/28/2019 3:51 PM TIN ROLLER HOT MILL Height 160 cm (5' 3 ) 08/28/2019 3:51 PM TIN ROLLER HOT MILL Body Mass Index 22.23 08/28/2019 3:51 PM TIN ROLLER HOT MILL Plan of Treatment Not on file Insurance ANTHEM ACCESS AN[place] ACCESS BLUE [employer] [place] [facility]
[2025-01-02 11:29] LABS: Alanine Aminotransferase 19 U/L (14-59); Albumin Level 3.9 g/dL (3.4-5.0); Alkaline Phosphatase 55 U/L (46-116); Anion Gap 9 mmol/L (4-12); Aspartate Amino Transferase < 10 U/L (15-37); Bilirubin,Total 0.5 mg/dL (0.00-1.00); Blood Urea Nitrogen 9 mg/dL (7-18); Calcium 9.1 mg/dL (8.5-10.1); Carbon Dioxide 28 mmol/L (21-32); Chloride 107 mmol/L (98-108); Cholesterol 152 mg/dL (0-200); Estimated Glomerular Filt Rate > 60; Glucose 106 mg/dL (70-99); HDL Direct 64 mg/dL (40-60); LDL Cholesterol Calculated 82 mg/dL (<130); Osmolality Calculated 296 mOsm/kg (285-295); Potassium 4.6 mmol/L (3.5-5.1); Sodium 144 mmol/L (136-145); Total Protein 7.3 g/dL (6.4-8.2); Triglycerides 28 mg/dL (0-150); Vitamin B12 753 pg/mL (193-986)
[2025-01-02 12:43] LABS: Thyroid Stimulating Hormone Reflex 1.78 u/IU/mL (0.36-3.74)
[2025-01-04 08:03] LABS: Vitamin D 25 Hydroxy 34 ng/mL (30-100)
== END 2025-01-02 10:19 | disposition home or self-care (01) ==
PROVIDERS: PCP Nurse Practitioner Family; Visit Provider Nurse Practitioner Family
DX: Z00.00 Encounter for general adult medical examination without abnormal findings (principal); R53.83 Other fatigue
CPT/HCPCS: 36415; 80053; 80061; 82306; 82607; 83036; 84443; 85025